=== PATIENT | male | born 1940 | race Caucasian/White ===

== ENCOUNTER → 2018-07-22 | Outpatient (CLI) | payer OTHER, BC | LOC: BHFA 11:00 | PROVIDERS: ATTEND Internal Medicine Cardiovascular Disease | DX: I48.91 Unspecified atrial fibrillation (principal) ==

== ENCOUNTER → 2018-07-27 | Outpatient (CLI) | payer OTHER, BC ==
--- NOTE | 2018-07-27 14:40 | ECHO ---
[email or web address] [email or web address] [address] Main: [phone] Echocardiography Examination Transthoracic Name: NINI PEMBERTON MR#: [id number] Study Date: 07/27/2018 Study Time: 01:53 PM Date of : 1940 Age: 77 year(s) Height: 180.3 cm (71 in.) Weight: 79.38 kg (175 lb.) BSA: 1.99 m2 Gender: Male Examination: Echo Contrast: Image Quality: Rhythm: Normal sinus rhythm Heart Rate: 79 bpm BP: 143 mmHg/83 mmHg Indication: New Onset A-fibrillation Procedure Staff Referring Physician: Rubber Vulcanizing Machine Operator: Jeff Hinkle RDCS Reading Physician: Abilio Burns MD Requesting Provider: Ordering Physician: Gavin Gaming MD Indication: New Onset A-fibrillation Measurements Chambers AV/MV Label Value Normal Value Label Value Normal Value LVOT Vmax 0.78 m/s (0.7m/s - 1.1m/s) AV PGmax 6 mmHg LVOT VTI 16.1 cm (18cm - 22cm) AV PGmean 4 mmHg LVDd, 2D 4.3 cm (4.2cm - 5.9cm) AV Vmax 1.24 m/s LVDs, 2D 2.5 cm (2.1cm - 4cm) MV E Vmax 0.82 m/s IVSd, 2D 0.9 cm (0.6cm - 1.1cm) MV A Vmax 0.9 m/s LVPWd, 2D 0.8 cm (0.6cm - 1cm) MV E/A 0.91 LVEF, 2D 73 % (54% - 74%) MV E/E' lateral 9.3 LVOT PGmean 1 mmHg MV E/E' septal 14.6 (0.45 - 1.25) LVOT Vmean 0.5 m/s MV E' septal 0.06 m/s RVDd, 2D 2.3 cm (1.9cm - 3.8cm) MV E' lateral 0.09 m/s LA Volume, BP 36 ml (18ml - 58ml) MV E/E' mean 10.93 LADs, 2D 3.1 cm (3cm - 4cm) MV E' mean 0.08 m/s LAESV index, BP 18.1 ml/m2 TV/PV Additional Vessels Label Value Normal Value Label Value Normal Value RA Pressure 5 mmHg AoRoot, MM 2.5 cm (2.2cm - 3.7cm) RVSP 38 mmHg TR Pmax 33 mmHg TR Vmax 2.89 m/s PV PGmax 2 mmHg Patient: NINI PEMBERTON Study Date: 07/27/2018 Page 1 of 3 01:53 PM PV Vmax, Caliper 0.79 m/s (0.6m/s - 0.9m/s) Conclusions Left Ventricle: Left ventricle is normal in size. Normal global systolic left ventricular function. There are no regional wall motion abnormalities. Diastolic Dysfunction is indeterminate. Mitral Valve: Trivial to mild mitral regurgitation. Aortic Valve: The aortic valve is trileaflet. Tricuspid Valve: Trivial tricuspid regurgitation. Right Ventricular systolic pressure is measured at 38 mmHg. Overall Conclusions: There is no previous echocardiogram for comparison. Findings Left Ventricle: Left ventricle is normal in size. Normal global systolic left ventricular function. Left ventricle wall thickness is normal. There are no regional wall motion abnormalities. Diastolic Dysfunction is indeterminate. Right Ventricle: Normal size right ventricle. Right ventricular systolic function is normal. Left Atrium: The left atrium is normal in size. Right Atrium: The right atrium is normal in size. Mitral Valve: Mitral valve appears structurally normal. Trivial to mild mitral regurgitation. Aortic Valve: No significant aortic valve regurgitation. Aortic leaflets exhibit mild calcification. The aortic valve is trileaflet. Tricuspid Valve: Trivial tricuspid regurgitation. Right Ventricular systolic pressure is measured at 38 mmHg. Pulmonary artery pressure normal. Pulmonic Valve: Pulmonic leaflets are normal in appearance and function. Aorta: The aorta is normal. The aortic root size in M-mode measures 2.5 cm. Aorta Measurements AoRoot, MM is 2.5 cm. Pericardium: No pericardial effusion. Exam Details Procedure Ordered: Echo Facility Location: Echo lab Patient: NINI PEMBERTON Study Date: 07/27/2018 Page 2 of 3 01:53 PM (No Signature Object) Patient: NINI PEMBERTON Study Date: 07/27/2018 Page 3 of 3 01:53 PM [id number]
== END ==
LOC: FCP 13:25
PROVIDERS: ATTEND Internal Medicine Cardiovascular Disease
DX: Z09 Encounter for follow-up examination after completed treatment for conditions other than malignant neoplasm (principal); I48.91 Unspecified atrial fibrillation